=== PATIENT | female | born 1950 | race Two or more races ===

== ENCOUNTER → 2016-07-05 | Day surgery (SDC) | payer OTHER, MEDICARE ==
[~2016-07-05] MED LIST: ALBU8.5H6 IH; BUDE10.22 IH; CIPR500T PO; DIAZ5TAB PO; HYDR1TAB10 PO; IBUP-1027 PO; IV RINGERS,LACTATED 1000ML 1,000 ML IV ONE; IV RINGERS,LACTATED 1000ML 1,000 ML IV SCH; LIDOCAINE 1% 1 ML SYRINGE. ID PRN; MORPHINE SULFATE 2 MG/ML DISP.SYRIN. IV PRN; MULT-658 PO; ONDANSETRON PF 4 MG/2 ML VIAL. IV PRN; PROCHLORPERAZINE 10 MG/2 ML VIAL. IV PRN; PROPOFOL 20 ML IV ONE; fentaNYL PF VIAL 100 MCG/2 ML VIAL IV PRN; tylenol pm
[2016-07-05 12:56] VITALS: BP 118/70
--- NOTE | 2016-07-07 13:12 | PATHOLOGY ---
PATHOLOGY REPORT * * * * * * * * FINAL DIAGNOSIS: A. Duodenal biopsy: - No significant pathologic abnormalities. B. Esophageal biopsy: - Segments of hyperplastic squamous esophageal mucosa, consistent with reflux esophagitis. C. Random colon biopsy: - No significant pathologic abnormalities. COMMENT: Sections of the duodenal biopsy reveal segments of duodenal and small intestine mucosa. Where best oriented, the mucosal villi appear normal. There are no sprue-like changes or significant inflammatory changes. Sections of the esophageal biopsy reveal two segments of tangentially oriented hyperplastic squamous esophageal mucosa. The findings are consistent with reflux. There is no evidence of Morel's change, dysplasia, or malignancy. Sections of the random colon biopsy reveal multiple segments of colonic mucosa containing several mucosal associated lymphoid aggregates. There is no evidence of a chronic destructive colitis, lymphocytic colitis, or collagenous colitis. (JPM:; d/t: 07/07/16) REPORT ELECTRONICALLY SIGNED BY: Pk Cleveland M.D. DATE/TIME: 07/07/2016 13:11 * * * * * * * * GROSS PATHOLOGY: A. Received in formalin labeled "Demetrice Ma, duodenal biopsy," are seven segments of tapia soft tissue measuring 1.2 x 1.2 x 0.2 cm in aggregate dimensions and ranging from 0.3 to 0.5 cm in maximum dimension. The specimen is submitted entirely in cassette A1. B. Received in formalin labeled "Demetrice Ma, esophageal biopsy," are two segments of tapia soft tissue measuring 0.5 x 0.5 x 0.1 cm in aggregate dimensions and ranging from 0.3 to 0.5 cm in maximum dimension. The specimen is submitted entirely in cassette B1. C. Received in formalin labeled "Demetrice Ma, random colon biopsy," are seven segments of tapia soft tissue measuring 1.4 x 1.2 x 0.1 cm in aggregate dimensions and ranging from 0.4 to 0.5 cm in maximum dimension. The specimen is submitted entirely in cassette C1. (CAA; 07/06/2016) INITIAL CPT CODE(S): A; 56368 B; 90353 C; 70838 Professional services performed by [facility] at [address] [address] Technical services performed by [facility] at [address] [place] [address], [address], [place] [address]. SPECIMEN(S) RECEIVED: A.Duodenal biopsy B.Esophageal biopsy C.Random colon biopsy CLINICAL HISTORY: History colon polyps, history gastric ulcer, weight loss; hemorrhoids, diverticulosis PATIENT: DEMETRICE MA /AGE: 4 1950 (Age: 66) PATIENT #: [id number] CASE #: SPECIMEN COLLECTION DATE: 07/05/2016 SPECIMEN RECEIVED DATE: 07/05/2016 [facility] - [address] [place] [address] - PHONE: [phone] * * * END OF REPORT * * *
== END | disposition home or self-care (01) ==
LOC: ENDOS 11:08
PROVIDERS: ATTEND Internal Medicine Gastroenterology
DX: K64.0 First degree hemorrhoids (principal); K57.30 Diverticulosis of large intestine without perforation or abscess without bleeding; K20.9 Esophagitis, unspecified; K29.50 Unspecified chronic gastritis without bleeding; K31.9 Disease of stomach and duodenum, unspecified
CPT/HCPCS: 43239; 45380; J2704; 88305

== ENCOUNTER 2016-07-06 12:47 | Emergency (ER) | payer OTHER, MEDICARE ==
[2016-07-05 12:56] VITALS: BP 118/70
[~2016-07-06] VITALS: Ht 157.5 cm; Wt 44.5 kg
[~2016-07-06 12:47] MED LIST changes: -DIAZ5TAB PO; -IBUP-1027 PO; -IV RINGERS,LACTATED 1000ML 1,000 ML IV ONE; -IV RINGERS,LACTATED 1000ML 1,000 ML IV SCH; -LIDOCAINE 1% 1 ML SYRINGE. ID PRN; -MORPHINE SULFATE 2 MG/ML DISP.SYRIN. IV PRN; -ONDANSETRON PF 4 MG/2 ML VIAL. IV PRN; -PROCHLORPERAZINE 10 MG/2 ML VIAL. IV PRN; -PROPOFOL 20 ML IV ONE; -fentaNYL PF VIAL 100 MCG/2 ML VIAL IV PRN
[2016-07-06] MEDS ORDERED: ACETAMINOPHEN 325 MG TABLET. PO ONE (13:00)
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
[2016-07-06] MEDS ORDERED: DIAZ5TAB PO (14:31)
[2016-07-06] MEDS ORDERED: IBUP-1027 PO (14:31)
== END 2016-07-06 14:40 | disposition home or self-care (01) ==
LOC: ER 12:47
DX: S16.1XXA Strain of muscle, fascia and tendon at neck level, initial encounter (principal); S39.012A Strain of muscle, fascia and tendon of lower back, initial encounter; S80.02XA Contusion of left knee, initial encounter; R00.0 Tachycardia, unspecified; I10 Essential (primary) hypertension; J45.909 Unspecified asthma, uncomplicated; F17.210 Nicotine dependence, cigarettes, uncomplicated; Z88.5 Allergy status to narcotic agent; Z88.2 Allergy status to sulfonamides; Z88.8 Allergy status to other drugs, medicaments and biological substances; Z88.6 Allergy status to analgesic agent; Z91.041 Radiographic dye allergy status; V49.60XA Unspecified car occupant injured in collision with unspecified motor vehicles in traffic accident, initial encounter; Y93.89 Activity, other specified; Y92.410 Unspecified street and highway as the place of occurrence of the external cause; Y99.8 Other external cause status
CPT/HCPCS: 72125; 72128; 72131; 96374; 99284; J3360

== ENCOUNTER 2016-10-24 11:56 | Emergency (ER) | payer OTHER, MEDICARE ==
[~2016-10-24] VITALS: Ht 157.5 cm; Wt 44.5 kg
[~2016-10-24 11:56] MED LIST changes: +DIAZ5TAB PO; +IBUP-1027 PO
[2016-10-24] MEDS ORDERED: KETOROLAC TROMETHAMINE 60 MG/2 ML INJ. IM ONE (12:30)
[2016-10-24] MEDS ORDERED: DEXAMETHASONE SOD PHOS 4 MG/ML VIAL IV ONE (12:30)
--- NOTE | 2016-10-24 12:37 | PHYS DOC ---
Past Medical History Past Medical History: Asthma, Other Additional Past Medical Histor: ULCERS Past Surgical History: Hysterectomy, Other Additional Past Surgical Histo: Back surgery,L)knee, R)great toe. Alcohol Use: None Drug Use: None Adult General Chief Complaint Chief Complaint: BACK PAIN OR INJURY HPI HPI Patient is a 66 year old female who presents with lower back pain. 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 Patient having difficult he walking. Patient states the pain is across her lower back. Patient is a previous back surgery approximately 10 years ago. Patient denies any stool or urinary incontinence. Patient denies any problems starting or stopping her urine. Patient denies any saddle anesthesia. Patient states she is able to walk however she is painful in the lower back. Patient able stand on tiptoes on the palms. Patient has no other complaints. Review of Systems Review of Systems GEN: Denies fevers, chills, sweats HEENT: Denies blurred vision, sore throat CV: Denies chest pain RESP: Denies shortness of air, cough GI: Denies n/v/d NEURO: Denies confusion, dizziness MSK: Denies weakness, joint pain/swelling BACK: Lower back pain Current Medications Current Medications Current Medications Medications (Trade) Dose Ordered Sig/Romi Start Time Stop Time Status Last Admin Dose Admin Dexamethasone Sodium Phosphate (Decadron) 10 mg 1X ONCE 10/24/16 12:30 10/24/16 12:31 DC 10/24/16 12:33 10 MG Ketorolac Tromethamine (Toradol Im) 30 mg 1X ONCE 10/24/16 12:30 10/24/16 12:31 DC 10/24/16 12:33 30 MG Allergies Allergies Allergies Coded Allergies Type Severity Reaction Last Updated Verified Iodinated Contrast- Oral and IV Dye Allergy Severe Hives 07/05/16 Yes Sulfa (Sulfonamide Antibiotics) Allergy Severe Hives 07/05/16 Yes iodine Allergy Severe Hives 07/05/16 Yes Gadolinium-Containing Contrast Medi Allergy Intermediate 07/05/16 Yes hydrocodone Allergy Intermediate 07/06/16 Yes acetaminophen Adverse Reaction Severe Nausea and Vomiting 07/05/16 Yes meperidine Adverse Reaction Severe Nausea and Vomiting 07/05/16 Yes oxycodone Adverse Reaction Severe Nausea and Vomiting 07/05/16 Yes propoxyphene Adverse Reaction Severe Nausea and Vomiting 07/05/16 Yes thiopental Adverse Reaction Severe "makes her high for days" 07/05/16 Yes Physical Exam Physical Exam GEN.: No apparent distress. Alert and oriented. HEENT: Head is normocephalic, atraumatic NECK: Supple. LUNGS: CTAB. HEART: RRR, S1, S2 present. Peripheral pulses intact ABDOMEN: Soft, nontender. Positive bowel sounds. EXTREMITIES: Without any cyanosis. NEUROLOGIC: Normal speech, normal tone, no saddle anesthesia, patellar reflexes equal +2 bilaterally, patient able stand on her tippy toes without any complications PSYCHIATRIC: Normal affect, normal mood. SKIN: No ulcerations BACK: Tenderness to palpation over the left paraspinous muscles bilaterally, no midline tenderness, scar from previous lower back surgery, Current Patient Data Vital Signs Vital Signs Date Time Temp Pulse Resp B/P (MAP) Pulse Ox O2 Delivery O2 Flow Rate FiO2 10/24/16 12:10 98.0 80 20 98 Room Air 98.0 EKG EKG [] Radiology/Procedures Radiology/Procedures CT L-spine Impression: 1. Prior anterior and posterior instrumentation from L4-S1 with laminectomies at L4-L5 and L5-S1 with hardware intact and stable alignment. 2. Limited evaluation of L4-S1 due to artifact from the hardware with no acute lumbar spine fracture or subluxation identified. 3. Disc degeneration, facet hypertrophy and posterior disc bulging results in mild spinal canal and mild bilateral neural foramen at L3-L4.[] Course & Med Decision Making Course & Med Decision Making Pertinent Labs and Imaging studies reviewed. (See chart for details) ED course: Patient was seen and examined emergency room 10 monos of Decadron, 30 mg of Toradol, CT L-spine without contrast were ordered 1424: Patient was reevaluated in which she states her back pain is feeling better and she is ready go home. Patient still denies any saddle anesthesia or any urinary issues worse or bladder or stool incontinence. Recommended short- term follow-up with PCP in one to 2 days. MDM: After reviewing the chart, CC/HPI/PMH, physical exam, [radiological results], I do not believe the patient has emergent spinal condition warranting further workup and/or admission at this time. I do not believe the patient has cauda equina or cord compression syndrome. On reexamination patient's back pain is improving and she is ready go home. Patient is stable for discharge. Additional verbal discharge instructions were provided to the patient and that if symptoms get worse or any new symptoms arise that are worrisome to the patient she is to return to the emergency room immediately [] Dragon Disclaimer Dragon Disclaimer This electronic medical record was generated, in whole or in part, using a voice recognition dictation system. Departure Departure Impression: Primary Impression: Lower back pain Disposition: HOME, SELF-CARE Condition: IMPROVED Referrals: NEETA WALSH MD (PCP) Patient Instructions: Back Pain, Adult Additional Instructions: Please follow up with your family physician in one to 2 days SENA MILES DO Oct 24, 2016 12:37
--- NOTE | 2016-10-24 13:39 | RAD ---
CT lumbar spine without contrast 10/24/2016 Clinical indication: Persistent low back pain. Comparison: CT lumbar spine 07/06/2016 Technique: Multiple CT images of the lumbar spine were obtained without contrast according to standard protocol. Coronal and sagittal reformations were obtained. PQRS Compliance Statement: One or more of the following individualized dose reduction techniques were utilized for this examination: 1. Automated exposure control 2. Adjustment of the mA and/or kV according to patient size 3. Use of iterative reconstruction technique Findings: Lumbar spine: There are postsurgical changes of prior posterior spinal fixation from L4-S1 with interbody fusion at L4-L5 and L5-S1 and anterior instrumentation at L4-L5 and L5-S1 the hardware is intact. Prior L4-L5 and L5-S1 laminectomies. No acute lumbar spine fracture or subluxation. There is unchanged mild disc degeneration at L3-L4 with disc space narrowing, degenerative endplate sclerosis and marginal osteophyte in conjunction with facet hypertrophy results in mild bilateral neural foraminal narrowing at L3-L4 and mild spinal canal narrowing. The paraspinal soft tissues are within normal limits, though evaluation of the spinal canal and neural foramina at L4-L5 and L5-S1 is limited due to hardware artifact. Moderate calcified atheromatous disease of the abdominal aorta. Impression: 1. Prior anterior and posterior instrumentation from L4-S1 with laminectomies at L4-L5 and L5-S1 with hardware intact and stable alignment. 2. Limited evaluation of L4-S1 due to artifact from the hardware with no acute lumbar spine fracture or subluxation identified. 3. Disc degeneration, facet hypertrophy and posterior disc bulging results in mild spinal canal and mild bilateral neural foramen at L3-L4.
[2016-10-24 14:42] VITALS: BP 162/102
== END 2016-10-24 14:41 | disposition home or self-care (01) ==
LOC: ER 11:56
DX: M54.5 Low back pain (principal); J45.909 Unspecified asthma, uncomplicated; Z91.041 Radiographic dye allergy status; Z88.2 Allergy status to sulfonamides; Z88.8 Allergy status to other drugs, medicaments and biological substances; Z88.5 Allergy status to narcotic agent; Z88.6 Allergy status to analgesic agent
CPT/HCPCS: 72131; 96372; 96374; 99284; J1100; J1885

== ENCOUNTER → 2016-11-28 | Outpatient (CLI) | payer OTHER, MEDICARE ==
[2016-11-28 13:52] LABS: BASO % 1 % (0-3); EOS % 1 % (0-3); HEMATOCRIT 30.6 % (36.0-47.0); HEMOGLOBIN 9.5 g/dL (12.0-15.5); LYMPH # 1.7 x10^3/uL (1.0-4.8); LYMPH % 24 % (24-48); MEAN CORPUSCULAR HEMOGLOBIN 22 pg (25-35); MEAN CORPUSCULAR HGB CONC 31 g/dL (31-37); MEAN CORPUSCULAR VOLUME 72 fL (79-100); MONO % 6 % (0-9); NEUT % 69 % (31-73); PLATELET COUNT 319 x10^3/uL (140-400); RED BLOOD COUNT 4.27 x10^6/uL (3.50-5.40); RED CELL DISTRIBUTION WIDTH 18.5 % (11.5-14.5); WHITE BLOOD COUNT 7.1 x10^3/uL (4.0-11.0)
[2016-11-28 14:20] LABS: PLT ESTIMATE ADEQUATE (ADEQUATE)
[2016-11-28 14:21] LABS: ANISOCYTOSIS SLIGHT
[2016-11-28 14:22] LABS: ALBUMIN 3.8 g/dL (3.4-5.0); CALCIUM 8.8 mg/dL (8.5-10.1); CREATININE 0.6 mg/dL (0.6-1.0); GFR 100.3; POTASSIUM 3.7 mmol/L (3.5-5.1); TOTAL BILIRUBIN 0.3 mg/dL (0.2-1.0); TOTAL PROTEIN 7.6 g/dL (6.4-8.2)
[2016-11-28 14:23] LABS: CHOLESTEROL/HDL RATIO 3.3
[2016-11-28 14:29] LABS: HYPOCHROMIA MOD; MICROCYTOSIS MOD; OVALOCYTES OCC; POIKILOCYTOSIS SLIGHT
== END | disposition home or self-care (01) ==
LOC: LAB 11:55
PROVIDERS: ATTEND Family Medicine
DX: N63.0 Unspecified lump in unspecified breast (principal); R63.4 Abnormal weight loss; R05 Cough; R19.7 Diarrhea, unspecified; Z71.6 Tobacco abuse counseling; Z72.0 Tobacco use
CPT/HCPCS: 36415; 80053; 80061; 82306; 84443; 85025; 85651

== ENCOUNTER → 2016-12-24 | Outpatient (CLI) | payer OTHER, MEDICARE ==
--- NOTE | 2016-12-24 14:24 | RAD ---
CT of the chest, abdomen and pelvis without contrast, 12/24/2016: History: Weight loss Multidetector CT imaging was performed following oral administration of a barium based contrast agent. No IV contrast was administered due to the patient's given history of an iodine allergy. There is calcific plaquing of the thoracic aorta without evidence of aneurysm. Several coronary artery calcifications are noted. The heart is not enlarged. There is a small amount of pericardial fluid. Small mediastinal lymph nodes are present without evidence of pathologic enlargement. There are calcified hilar nodes compatible with old granulomatous disease. There are emphysematous changes in the lungs. There are reticular pulmonary opacities primarily in the periphery of the lungs compatible with fibrosis.. There is a component of peripheral honeycombing posteriorly in the lower lobes. There are thicker pleural-parenchymal scars in both apices. Similar findings were present on the study of 07/21/2014. No pulmonary mass is identified. There is no evidence of pleural fluid. The unopacified liver is unremarkable. The gallbladder is not clearly visualized in this thin patient. There is very little intra-abdominal fat the abdominal structures. Artifacts arising from spinal surgical implants degrade image quality in the lower abdomen and pelvis. The pancreas cannot be clearly from unopacified bowel. The spleen is of normal size. The unopacified kidneys show no abnormality. Aortoiliac calcific plaquing is present. No abdominal or pelvic adenopathy is seen. The oral contrast material has reached the colon. A portion of the appendix is visualized and it is unremarkable. Sigmoid diverticula are evident. No free air or free fluid is evident in the abdomen or pelvis. There has been previous lower lumbar spinal fusion and instrumentation from L4 through S1. There is a mild thoracolumbar scoliosis with multilevel degenerative change. Mild degenerative changes are evident at both hips. IMPRESSION: 1. Emphysema with pulmonary fibrosis. 2. Small pericardial effusion. 3. Sigmoid diverticulosis. PQRS Compliance Statement: One or more of the following individualized dose reduction techniques were utilized for this examination: 1. Automated exposure control 2. Adjustment of the mA and/or kV according to patient size 3. Use of iterative reconstruction technique
== END | disposition home or self-care (01) ==
LOC: CT 09:52
PROVIDERS: ATTEND Family Medicine
DX: I25.10 Atherosclerotic heart disease of native coronary artery without angina pectoris (principal); J84.10 Pulmonary fibrosis, unspecified; K57.30 Diverticulosis of large intestine without perforation or abscess without bleeding; J43.9 Emphysema, unspecified; I31.3 Pericardial effusion (noninflammatory); Z98.1 Arthrodesis status; R63.4 Abnormal weight loss; R05 Cough; Z72.0 Tobacco use
CPT/HCPCS: 71250; 74176

== ENCOUNTER → 2017-04-13 | Outpatient (CLI) | payer OTHER, MEDICARE | END | disposition home or self-care (01) | LOC: MRI 15:11 | DX: M19.071 Primary osteoarthritis, right ankle and foot (principal) | CPT/HCPCS: 73718 ==

== ENCOUNTER 2017-04-14 16:06 | Emergency (ER) | payer OTHER, MEDICARE | END 2017-04-14 17:20 | disposition home or self-care (01) | LOC: ER 16:06 | DX: M25.531 Pain in right wrist (principal); J45.909 Unspecified asthma, uncomplicated; Z88.2 Allergy status to sulfonamides; Z88.5 Allergy status to narcotic agent; Z88.8 Allergy status to other drugs, medicaments and biological substances; Z88.6 Allergy status to analgesic agent; Z91.041 Radiographic dye allergy status; W54.1XXA Struck by dog, initial encounter; Y93.89 Activity, other specified; Y99.8 Other external cause status; Y92.89 Other specified places as the place of occurrence of the external cause | CPT/HCPCS: 29125; 73110; 99284-25 ==

== ENCOUNTER 2017-06-15 09:57 | Day surgery (SDC) | payer OTHER, MEDICARE ==
[~2017-06-15 09:57] MED LIST changes: -ALBU8.5H6 IH; -BUDE10.22 IH; -CIPR500T PO; -DIAZ5TAB PO; -HYDR1TAB10 PO; -IBUP-1027 PO; +LIDOCAINE 1% PF 2 ML VIAL. ID; -MULT-658 PO; +ONDANSETRON PF 4 MG/2 ML VIAL. IV; +PROCHLORPERAZINE 10 MG/2 ML VIAL. IV; -tylenol pm
[2017-06-15] MEDS: PROPARACAINE 0.5% OPHTH SOLUTION 15ML BOTTLE. OD (10:33)
[2017-06-15] MEDS: PHENYLEPHRINE 10% OPHTH SOLUTION 5ML BOTTLE. OD ×3 (10:35→10:45)
[2017-06-15] MEDS: IV RINGERS,LACTATED 1000ML 1,000 ML IV (10:44)
[2017-06-15] MEDS: CYCLOPENTOLATE 1% OPTH SOLUTION 2ML BOTTLE. OD ×3 (10:46→11:01)
[2017-06-15] MEDS: CIPROFLOXACIN 0.3% OPHTH SOLUTION 5ML BOTTLE. OD (11:01)
[2017-06-15] MEDS: LIDOCAINE 2% JELLY 6ML IN APPLICATOR. MM (11:13)
[2017-06-15] MEDS ORDERED: MIDAZOLAM HCL/PF 2 MG/2 ML VIAL. (12:25)
[2017-06-15] MEDS ORDERED: fentaNYL PF VIAL 100 MCG/2 ML VIAL (12:46)
[2017-06-15] MEDS: BALANCED SALT IRRIG OPHTH SOLN 15 ML BOTTLE. (12:56)
[2017-06-15] MEDS: LIDOCAINE 1% PF 2 ML VIAL. (12:56)
[2017-06-15] MEDS: CHONDROITIN-SOD-HYALURONATE 0.5 ML DISP.SYRIN. (12:56)
[2017-06-15] MEDS: CHONDROIT-SOD-HYALURONATE KIT. (12:56)
[2017-06-15] MEDS: TRYPAN BLUE 0.06% INTRAOCULAR 0.5 ML SYRINGE. IO (13:02)
[2017-06-15] MEDS: NEO/POLYMYX/DEXAMETH OPHTH OINTMENT 3.5GM TUBE. (13:03)
== END 2017-06-15 14:01 | disposition home or self-care (01) ==
LOC: SURG 09:57
DX: H25.091 Other age-related incipient cataract, right eye (principal); K21.0 Gastro-esophageal reflux disease with esophagitis; J45.909 Unspecified asthma, uncomplicated; M19.90 Unspecified osteoarthritis, unspecified site; F17.200 Nicotine dependence, unspecified, uncomplicated; Z90.710 Acquired absence of both cervix and uterus; Z98.890 Other specified postprocedural states; Z80.9 Family history of malignant neoplasm, unspecified; Z88.2 Allergy status to sulfonamides; Z91.041 Radiographic dye allergy status; Z91.048 Other nonmedicinal substance allergy status
CPT/HCPCS: 66982; C1780; J0171; J2250; J3010

== ENCOUNTER 2017-06-22 10:00 | Day surgery (SDC) | payer OTHER, MEDICARE ==
[~2017-06-22 10:00] MED LIST changes: +BALANCED SALT IRRIG OPHTH SOLN 15 ML BOTTLE.; +CHONDROITIN-SOD-HYALURONATE 0.5 ML DISP.SYRIN.; +LIDOCAINE 2% JELLY 6ML IN APPLICATOR. MM
[2017-06-22] MEDS: PROPARACAINE 0.5% OPHTH SOLUTION 15ML BOTTLE. OS (10:38)
[2017-06-22] MEDS: CYCLOPENTOLATE 1% OPTH SOLUTION 2ML BOTTLE. OS ×3 (10:39→10:50)
[2017-06-22] MEDS: PHENYLEPHRINE 10% OPHTH SOLUTION 5ML BOTTLE. OS ×3 (10:39→10:50)
[2017-06-22] MEDS: IV RINGERS,LACTATED 1000ML 1,000 ML IV (10:43)
[2017-06-22] MEDS: CIPROFLOXACIN 0.3% OPHTH SOLUTION 5ML BOTTLE. OS (10:50)
[2017-06-22] MEDS ORDERED: MIDAZOLAM HCL/PF 2 MG/2 ML VIAL. (12:02)
[2017-06-22] MEDS: LIDOCAINE 1% PF 2 ML VIAL. (12:16)
[2017-06-22] MEDS: CHONDROIT-SOD-HYALURONATE KIT. (12:16)
[2017-06-22] MEDS: NEO/POLYMYX/DEXAMETH OPHTH OINTMENT 3.5GM TUBE. (12:18)
== END 2017-06-22 13:21 | disposition home or self-care (01) ==
LOC: SURG 10:00
DX: H26.9 Unspecified cataract (principal); Z88.2 Allergy status to sulfonamides; Z88.8 Allergy status to other drugs, medicaments and biological substances; Z91.041 Radiographic dye allergy status
CPT/HCPCS: 66984; C1780; J0171; J0690; J1580; J2250

== ENCOUNTER 2017-12-30 09:47 | Emergency (ER) | payer MEDICARE, OTHER ==
[~2017-12-30] VITALS: Ht 162.6 cm; Wt 46.7 kg
[~2017-12-30 09:47] MED LIST changes: +ALBU8.5H6 IH; -BALANCED SALT IRRIG OPHTH SOLN 15 ML BOTTLE.; +BUDE10.22 IH; -CHONDROITIN-SOD-HYALURONATE 0.5 ML DISP.SYRIN.; +CIPR500T PO; +DIAZ5TAB PO; +HYDR1TAB10 PO; +IBUP-1027 PO; -LIDOCAINE 1% PF 2 ML VIAL. ID; -LIDOCAINE 2% JELLY 6ML IN APPLICATOR. MM; +MULT-658 PO; -ONDANSETRON PF 4 MG/2 ML VIAL. IV; -PROCHLORPERAZINE 10 MG/2 ML VIAL. IV; +tylenol pm
[2017-12-30 10:01] VITALS: BP 144/88
--- NOTE | 2017-12-30 10:36 | PHYS DOC ---
Past Medical History Past Medical History: Asthma, Other Additional Past Medical Histor: ULCERS Past Surgical History: Hysterectomy, Other Additional Past Surgical Histo: Back surgery,L)knee, R)great toe. Alcohol Use: None Drug Use: None Adult General Chief Complaint Chief Complaint: Neck Pain HPI HPI Patient is a 67 year old female with history of asthma who presents today complaining of 10 out of 10 bilateral neck pain worse on range of motion to the left that began 3 days ago when she woke up in the morning hx of the same. Patient denies any neck stiffness. Denies any fever. Denies any known injury. Review of Systems Review of Systems Constitutional: Denies fever or chills [] Eyes: Denies change in visual acuity, redness, or eye pain [] HENT: Denies nasal congestion or sore throat [] Respiratory: Denies cough or shortness of breath [] Cardiovascular: No additional information not addressed in HPI [] GI: Denies abdominal pain, nausea, vomiting, bloody stools or diarrhea [] : Denies dysuria or hematuria [] Musculoskeletal: Reports neck pain. Integument: Denies rash or skin lesions [] Neurologic: Denies headache, focal weakness or sensory changes [] All other systems were reviewed and found to be within normal limits, except as documented in this note. Current Medications Current Medications Current Medications Medications (Trade) Dose Ordered Sig/Romi Start Time Stop Time Status Last Admin Dose Admin Dexamethasone Sodium Phosphate (Decadron) 10 mg 1X ONCE 12/30/17 10:45 12/30/17 10:46 DC 12/30/17 10:51 10 MG Ketorolac Tromethamine (Toradol Im) 60 mg 1X ONCE 12/30/17 10:45 12/30/17 10:46 DC 12/30/17 10:51 60 MG Ondansetron HCl (Zofran Odt) 4 mg 1X ONCE 12/30/17 10:45 12/30/17 10:46 DC 12/30/17 10:51 4 MG Allergies Allergies Allergies Coded Allergies Type Severity Reaction Last Updated Verified Iodinated Contrast- Oral and IV Dye Allergy Severe Hives 06/22/17 Yes Sulfa (Sulfonamide Antibiotics) Allergy Severe Hives 06/22/17 Yes iodine Allergy Severe Hives 06/22/17 Yes Gadolinium-Containing Contrast Medi Allergy Intermediate 06/22/17 Yes hydrocodone Allergy Intermediate 06/22/17 Yes acetaminophen Adverse Reaction Severe Nausea and Vomiting 06/22/17 Yes meperidine Adverse Reaction Severe Nausea and Vomiting 06/22/17 Yes oxycodone Adverse Reaction Severe Nausea and Vomiting 06/22/17 Yes propoxyphene Adverse Reaction Severe Nausea and Vomiting 06/22/17 Yes thiopental Adverse Reaction Severe "makes her high for days" 06/22/17 Yes Physical Exam Physical Exam Constitutional: Well developed, well nourished, no acute distress, non-toxic appearance. [] HENT: Normocephalic, atraumatic, bilateral external ears normal, oropharynx moist, no oral exudates, nose normal. [] Eyes: PERRLA, EOMI, conjunctiva normal, no discharge. [] Neck: Normal range of motion, diffuse paraspinal muscle tenderness the left lateral cervical spine, no midline cervical spine tenderness, supple, no stridor. No cervical spine stiffness noted. Cardiovascular:Heart rate regular rhythm, no murmur [] Lungs & Thorax: Bilateral breath sounds clear to auscultation [] Abdomen: Bowel sounds normal, soft, no tenderness, no masses, no pulsatile masses. [] Skin: Warm, dry, no erythema, no rash. [] Back: No tenderness, no CVA tenderness. [] Extremities: No tenderness, no cyanosis, no clubbing, ROM intact, no edema. [] Neurologic: Alert and oriented X 3, normal motor function, normal sensory function, no focal deficits noted. [] Psychologic: Affect normal, judgement normal, mood normal. [] Current Patient Data Vital Signs Vital Signs Date Time Temp Pulse Resp B/P (MAP) Pulse Ox O2 Delivery O2 Flow Rate FiO2 12/30/17 11:25 100 12/30/17 10:01 97.8 18 144/88 (106) 95 Room Air 97.8 EKG EKG [] Radiology/Procedures Radiology/Procedures [] Course & Med Decision Making Course & Med Decision Making Pertinent Labs and Imaging studies reviewed. (See chart for details) This is a 67-year-old female patient who presents to the ED today with neck pain that began 3 days ago when she woke up, no neck stiffness, no fever. Pain is musculoskeletal. Patient was provided pain relief in the ED. Discharged with instructions to follow-up with her own PCP as well as the pain clinic. Provided return precautions and discharged in stable condition. HR was 120 on arrival, patient attributes it to pain, vitals to be rechecked prior to discharge. Staff Physician Addendum: I was working in the ER during the course of this patient's visit. I was available for consultation as needed, but I was not directly involved in the care of this patient. Dragon Disclaimer Dragon Disclaimer This electronic medical record was generated, in whole or in part, using a voice recognition dictation system. Departure Departure Impression: Primary Impression: Torticollis, acute Disposition: 01 HOME, SELF-CARE Condition: STABLE Referrals: NO PCP (PCP) follow up with your doctor in one week. Patient Instructions: Torticollis, Acute Additional Instructions: You were evaluated with neck pain. Use/take the prescribed medications as ordered. Follow-up with your own doctor in 1-2 weeks. Continue to apply heat to the neck. Follow up with your doctor as soon as you can. Scripts Diclofenac Sodium (DICLOFENAC SODIUM) 50 Mg Tablet.dr 1 TAB PO BID, #14 TAB 0 Refills Prov: NIC VILLAFANA APRN 12/30/17 Diazepam (VALIUM) 5 Mg Tablet 5 MG PO TID, #20 TAB Prov: NIC VILLAFANA APRN 12/30/17 Hydrocodone/Apap 5-325 (NORCO 5-325 TABLET) 1 Each Tablet 1 TAB PO Q6HRS, #20 TAB Prov: NIC VILLAFANA APRN 12/30/17 Ondansetron (ZOFRAN ODT) 4 Mg Tab.rapdis 1 TAB SL Q8HRS, #15 TAB Prov: NIC VILLAFANA APRN 12/30/17 NIC VILLAFANA APRN Dec 30, 2017 10:36 MYRIAM DIAS MD Dec 30, 2017 11:56
[2017-12-30] MEDS ORDERED: ONDANSETRON ODT 4 MG TAB.RAPDIS. PO ONE (10:45)
[2017-12-30] MEDS ORDERED: KETOROLAC 60 MG/2 ML INJ. IM ONE (10:45)
[2017-12-30] MEDS ORDERED: DEXAMETHASONE SOD PHOS 20 MG/5 ML VIAL. IM ONE (10:45)
[2017-12-30] MEDS ORDERED: DIAZ5TAB PO (11:21)
[2017-12-30] MEDS ORDERED: HYDR-971 PO (11:21)
[2017-12-30] MEDS ORDERED: ONDA4TAB10 SL (11:21)
[2017-12-30] MEDS ORDERED: DICL50TA4 PO (11:21)
== END 2017-12-30 11:25 | disposition home or self-care (01) ==
LOC: ER 09:47
DX: M43.6 Torticollis (principal); J45.909 Unspecified asthma, uncomplicated; Z88.8 Allergy status to other drugs, medicaments and biological substances; Z91.041 Radiographic dye allergy status; Z88.2 Allergy status to sulfonamides; Z88.6 Allergy status to analgesic agent; Z88.5 Allergy status to narcotic agent
CPT/HCPCS: 96372; 99284; J1100; J1885; Q0162

== ENCOUNTER → 2021-01-28 | Outpatient (CLI) | payer MEDICARE, OTHER ==
[~2021-01-28] MED LIST changes: -CIPR500T PO; +CIPR500T2 PO; +DICL50TA4 PO; +HYDR-3164 PO; +ONDA4TAB10 SL
--- NOTE | 2021-01-28 16:52 | RAD ---
BILATERAL DIGITAL SCREENING 2-D AND 3-D MAMMOGRAM INDICATION: Routine screening. COMPARISON: 12/03/2016 Interpretation was made using CAD. FINDINGS: Breast Density: The breasts are heterogeneously dense, which may obscure small masses. RIGHT BREAST: No suspicious masses, calcifications or areas of architectural distortion are seen. LEFT BREAST: No suspicious masses, calcifications or areas of architectural distortion are seen. IMPRESSION: 1. No imaging evidence of malignancy. ASSESSMENT: BI-RADS 1: Negative. RECOMMENDATION: Routine annual screening mammogram. Your patient's mammogram demonstrates that she has dense breast tissue (breast density category C or D), which could hide abnormalities, and if she has other risk factors for breast cancer that have bee n identified, she might benefit from supplemental screening tests that may be suggested by you as her ordering physician. Dense breast tissue, in and of itself, is a relatively common condition. Therefo re, this information is not provided to cause undue concern, but rather to raise your awareness and t o promote discussion with your patient regarding the presence of other risk factors, in addition to d ense breast tissue. The facility will notify the patient of the results via mail. Patient information will be entered int o the mammography reminder system with a target recall date for the next mammogram. A reminder letter will be generated by the facility. Electronically signed by: Pino Zamora MD (01/28/2021 4:49 PM) [id number]
== END ==
LOC: MAMMO 14:48
PROVIDERS: ATTEND Family Medicine
DX: Z12.31 Encounter for screening mammogram for malignant neoplasm of breast (principal)
CPT/HCPCS: 77063; 77067

== ENCOUNTER → 2021-01-29 | Outpatient (CLI) | payer OTHER ==
[~2021-01-29] VITALS: Ht 162.6 cm; Wt 46.7 kg
[2021-01-29 11:38] LABS: HEMATOCRIT 25.3 % (36.0-47.0); HEMOGLOBIN 7.3 g/dL (12.0-15.5)
[2021-01-29 11:49] VITALS: BP 153/67
[2021-01-29 13:22] VITALS: BP 146/69
[2021-01-29 14:20] VITALS: BP 134/61
[2021-01-29 15:03] VITALS: BP 144/67
[2021-01-29 18:39] LABS: HEMATOCRIT 28.2 % (36.0-47.0); HEMOGLOBIN 8.4 g/dL (12.0-15.5)
== END ==
LOC: OPS 10:49
PROVIDERS: ATTEND Family Medicine
DX: D64.9 Anemia, unspecified (principal)
CPT/HCPCS: 36415; 36430; 85014; 85018; 86850; 86900; 86901; 86920; P9016